=== PATIENT | male | born 1965 | race Caucasian/White ===

== ENCOUNTER 2016-07-04 17:34 | Emergency (ER) | payer OTHER ==
[~2016-07-04] VITALS: Ht 167.6 cm; Wt 98.0 kg
[2016-07-04 18:08] VITALS: BP 156/97
--- NOTE | 2016-07-04 19:18 | NUR ---
PATIENT LEFT WITHOUT BEING SEEN BY DR. BURROUGHS. NO FURTHER CARE PROVIDED FOR PATIENT.
== END 2016-07-04 19:18 | disposition left against medical advice (07) ==
LOC: MED 17:34
DX: R03.0 Elevated blood-pressure reading, without diagnosis of hypertension (principal); Z53.21 Procedure and treatment not carried out due to patient leaving prior to being seen by health care provider

== ENCOUNTER 2021-03-11 20:38 | Emergency (ER) | payer OTHER ==
[~2021-03-11] VITALS: Ht 167.6 cm; Wt 89.1 kg
[2021-03-11 21:13] VITALS: BP 163/93
--- NOTE | 2021-03-11 21:25 | NUR ---
55 yo m bib self with 5/10 aching right arm pain x3days. cold intensifies. took ibuprofen with some relief. feels pain deeper than muscle pain. pt has right rotator cup surgery and bicep reattached in 2019. has carpal tunnel in both hands, had surgey in both hands-getting mri done for it. hx:htn, hdl, prediabetic rx:lisinopril 10mg, atrovastatin allerg: denied
--- NOTE | 2021-03-12 00:18 | NUR ---
per [facility] pt right elbow was place in an blue wrap and pmcs was all wnl.
[2021-03-12] MEDS ORDERED: NAPR-54 PO (00:26)
[2021-03-12 00:30] VITALS: BP 163/93
== END 2021-03-12 00:30 | disposition home or self-care (01) ==
LOC: MED 20:38
DX: M70.31 Other bursitis of elbow, right elbow (principal); I10 Essential (primary) hypertension; E78.5 Hyperlipidemia, unspecified; Z79.899 Other long term (current) drug therapy; Z98.890 Other specified postprocedural states
CPT/HCPCS: 73090; 99283